=== PATIENT | male | born 1980 | race Caucasian/White ===

== ENCOUNTER 2023-08-01 16:04 | Emergency (ER) | payer OTHER ==
[~2023-08-01] VITALS: Ht 185.4 cm; Wt 122.5 kg
[~2023-08-01 16:04] MED LIST: HYDR-5071 PO; ZOLP10TA1 PO
[2023-08-01 16:09] VITALS: BP 118/63; PULSE 79; RESP 16; TEMP 97.8; O2SAT 98
[2023-08-01 17:07] LABS: BASOPHILS # (AUTO) 0.1 K/uL (0.00-0.22); BASOPHILS % (AUTO) 2.8 % (0.0-2.0); EOSINOPHILS # (AUTO) 0.1 K/uL (0-0.4); EOSINOPHILS % (AUTO) 1.4 % (0.0-4.0); HEMATOCRIT 27.5 % (36-52); HEMOGLOBIN 8.5 g/dL (12.0-18.0); LYMPHOCYTES # (AUTO) 1.9 K/uL (2.0-11.5); LYMPHOCYTES % (AUTO) 44.2 % (20.5-51.1); MEAN CORPUSCULAR HEMOGLOBIN 23 pg (27-31); MEAN CORPUSCULAR HGB CONC 31 g/dL (33-37); MEAN CORPUSCULAR VOLUME 75.1 fL (80-94); MONOCYTES # (AUTO) 0.5 K/uL (0.8-1.0); MONOCYTES % (AUTO) 10.7 % (1.7-9.3); NEUTROPHILS # (AUTO) 1.7 K/uL (1.8-7.7); NEUTROPHILS % (AUTO) 40.9 % (42.2-75.2); PLATELET COUNT (AUTO) 158 K/uL (140-450); RED BLOOD CELL COUNT(AUTO) 3.66 MIL/uL (4.20-6.10); RED CELL DISTRIBUTION WIDTH 21.9 % (11.6-13.7); WHITE BLOOD COUNT (AUTO) 4.3 K/uL (4.8-10.8)
[2023-08-01] MEDS: KETAMINE 500 MG/5 ML VIAL IM ONE (17:14)
[2023-08-01 17:16] LABS: CARBON DIOXIDE 24.9 mmol/L (21-32); CREATININE 0.7 mg/dL (0.6-1.3); POTASSIUM 3.9 mmol/L (3.5-5.1)
[2023-08-01 17:22] LABS: ALBUMIN 2.8 g/dL (3.4-5.0); BILIRUBIN,DIRECT 0.1 mg/dL (0.0-0.3); TOTAL BILIRUBIN 0.3 mg/dL (0.0-1.0); TOTAL PROTEIN, SERUM 6.1 g/dL (6.4-8.2)
[2023-08-01] MEDS: fentaNYL citrate 0.05 MG/ML VIAL IM ONE (17:38)
[2023-08-01] MEDS ORDERED: SIMETHICONE 40 MG/0.6 ML ONE (20:00)
[2023-08-01] MEDS ORDERED: DICYCLOMINE HCL LIQUID 10 MG/5 ML UDC ONE (20:00)
[2023-08-01] MEDS: DICYCLOMINE HCL LIQUID 20 MG, ALUMINUM HYD/MAG/SIMETHICONE 30 ML, LIDOCAINE VISCOUS 2% ... PO ONE (20:04)
[2023-08-01 22:17] VITALS: BP 122/72; PULSE 82; RESP 17; TEMP 98; O2SAT 98
== END 2023-08-01 22:17 | disposition home or self-care (01) ==
LOC: MED 16:04
DX: R10.84 Generalized abdominal pain (principal); R11.2 Nausea with vomiting, unspecified; R19.7 Diarrhea, unspecified; I11.9 Hypertensive heart disease without heart failure; K21.9 Gastro-esophageal reflux disease without esophagitis; Z72.89 Other problems related to lifestyle; Z79.899 Other long term (current) drug therapy
CPT/HCPCS: 36415; 74177; 80048; 80076; 82150; 83690; 85025; 96374; 99285; Q9967; J3010

== ENCOUNTER 2023-08-11 23:30 | Emergency (ER) | payer OTHER ==
[~2023-08-11] VITALS: Ht 185.4 cm; Wt 108.9 kg
[2023-08-11 23:30] VITALS: BP 110/72; PULSE 76; RESP 17; TEMP 98; O2SAT 99
[2023-08-11] MEDS ORDERED: DICYCLOMINE HCL LIQUID 10 MG/5 ML UDC ONE (23:47)
[2023-08-11] MEDS ORDERED: ALUMINUM HYD/MAG/SIMETHICONE 30 ML UDC ONE (23:47)
[2023-08-11] MEDS: DICYCLOMINE HCL LIQUID 20 MG, ALUMINUM HYD/MAG/SIMETHICONE 30 ML, LIDOCAINE VISCOUS 2% ... PO ONE (23:49)
[2023-08-11 23:50] LABS: EOSINOPHILS # (AUTO) 0.1 K/uL (0-0.4); EOSINOPHILS % (AUTO) 3.5 % (0.0-4.0); HEMATOCRIT 29.6 % (36-52); HEMOGLOBIN 9.1 g/dL (12.0-18.0); LYMPHOCYTES # (AUTO) 1.6 K/uL (2.0-11.5); LYMPHOCYTES % (AUTO) 38.3 % (20.5-51.1); MEAN CORPUSCULAR HEMOGLOBIN 24 pg (27-31); MEAN CORPUSCULAR HGB CONC 31 g/dL (33-37); MEAN CORPUSCULAR VOLUME 76.5 fL (80-94); MONOCYTES # (AUTO) 0.3 K/uL (0.8-1.0); MONOCYTES % (AUTO) 7.3 % (1.7-9.3); NEUTROPHILS % (AUTO) 49.9 % (42.2-75.2); PLATELET COUNT (AUTO) 218 K/uL (140-450); RED BLOOD CELL COUNT(AUTO) 3.87 MIL/uL (4.20-6.10); RED CELL DISTRIBUTION WIDTH 22.9 % (11.6-13.7); WHITE BLOOD COUNT (AUTO) 4.1 K/uL (4.8-10.8)
[2023-08-12 00:07] LABS: ALANINE AMINOTRANSFERASE 23 U/L (12-78); ALBUMIN 2.8 g/dL (3.4-5.0); ALKALINE PHOSPHATASE 86 U/L (50-136); ANION GAP 9.6 (8-16); ASPARTATE AMINOTRANSFERASE 19 U/L (15-37); CALCIUM 7.7 mg/dL (8.5-10.1); CARBON DIOXIDE 29.1 mmol/L (21-32); CHLORIDE 100 mmol/L (98-107); CREATININE 0.7 mg/dL (0.6-1.3); GFR ARICAN-AMERICAN 160 mL/min (>90); GFR NON ARICAN-AMERICAN 132 mL/min (>90); GLUCOSE 83 mg/dL (74-106); LIPASE 25 U/L (16-77); POTASSIUM 3.7 mmol/L (3.5-5.1); SODIUM SERUM 135 mmol/L (136-145); TOTAL BILIRUBIN 0.4 mg/dL (0.0-1.0); TOTAL PROTEIN, SERUM 6.2 g/dL (6.4-8.2); UREA NITROGEN, BLOOD 4 mg/dL (7-18)
[2023-08-12 02:28] VITALS: BP 112/72; PULSE 75; RESP 16; TEMP 98; O2SAT 99
[2023-08-12] MEDS ORDERED: PANT40EC PO (02:47)
[2023-08-12] MEDS ORDERED: ONDA-188 PO (02:47)
[2023-08-12] MEDS ORDERED: MAG355OR2 PO (02:47)
[2023-08-12] MEDS ORDERED: FERR325E14 PO (02:52)
[2023-08-12] MEDS: FAMOTIDINE 20 MG TAB PO ONE (03:25)
[2023-08-12] MEDS: ACETAMINOPHEN EXTRA STRENGTH 500 MG TAB PO ONE (03:26)
== END 2023-08-12 03:29 | disposition home or self-care (01) ==
LOC: MED 23:30
DX: K29.70 Gastritis, unspecified, without bleeding (principal); R06.02 Shortness of breath; F10.20 Alcohol dependence, uncomplicated; K21.9 Gastro-esophageal reflux disease without esophagitis; D64.9 Anemia, unspecified; I50.9 Heart failure, unspecified; Z59.00 Homelessness unspecified; Z79.1 Long term (current) use of non-steroidal anti-inflammatories (NSAID); Z79.899 Other long term (current) drug therapy; Y90.9 Presence of alcohol in blood, level not specified
CPT/HCPCS: 36415; 71045; 80053; 83690; 84484; 85025; 93005; 99285

== ENCOUNTER 2023-10-16 20:53 | Emergency (ER) | payer OTHER ==
[~2023-10-16] VITALS: Ht 180.3 cm; Wt 127.0 kg
[~2023-10-16 20:53] MED LIST changes: +FERR325E14 PO; +MAG355OR2 PO; +ONDA-188 PO; +PANT40EC PO
[2023-10-16 21:49] VITALS: BP 117/69; PULSE 69; RESP 16; TEMP 98.4; O2SAT 97
[2023-10-16 22:28] LABS: BASOPHILS # (AUTO) 0.1 K/uL (0.00-0.22); BASOPHILS % (AUTO) 1.6 % (0.0-2.0); EOSINOPHILS # (AUTO) 0.1 K/uL (0-0.4); EOSINOPHILS % (AUTO) 1.6 % (0.0-4.0); HEMATOCRIT 33.9 % (36-52); HEMOGLOBIN 10.6 g/dL (12.0-18.0); LYMPHOCYTES # (AUTO) 2.1 K/uL (2.0-11.5); LYMPHOCYTES % (AUTO) 51.7 % (20.5-51.1); MEAN CORPUSCULAR HEMOGLOBIN 27 pg (27-31); MEAN CORPUSCULAR HGB CONC 31 g/dL (33-37); MEAN CORPUSCULAR VOLUME 85.3 fL (80-94); MONOCYTES # (AUTO) 0.4 K/uL (0.8-1.0); MONOCYTES % (AUTO) 10.2 % (1.7-9.3); NEUTROPHILS # (AUTO) 1.4 K/uL (1.8-7.7); NEUTROPHILS % (AUTO) 34.9 % (42.2-75.2); PLATELET COUNT (AUTO) 145 K/uL (140-450); RED BLOOD CELL COUNT(AUTO) 3.97 MIL/uL (4.20-6.10); RED CELL DISTRIBUTION WIDTH 19.8 % (11.6-13.7); WHITE BLOOD COUNT (AUTO) 4.1 K/uL (4.8-10.8)
[2023-10-16 22:38] LABS: ANION GAP 13.9 (8-16); CALCIUM 8.2 mg/dL (8.5-10.1); CARBON DIOXIDE 28.2 mmol/L (21-32); CREATININE 0.7 mg/dL (0.6-1.3); POTASSIUM 4.1 mmol/L (3.5-5.1)
[2023-10-16] MEDS: NACL 0.9% 1,000 ML IV SCH (22:40)
[2023-10-16] MEDS: ONDANSETRON 4 MG/2 ML VIAL IVP ONE (22:41)
[2023-10-16 22:42] LABS: ALBUMIN 2.8 g/dL (3.4-5.0); BILIRUBIN,DIRECT 0.2 mg/dL (0.0-0.3); TOTAL BILIRUBIN 0.5 mg/dL (0.0-1.0); TOTAL PROTEIN, SERUM 6.5 g/dL (6.4-8.2)
[2023-10-16] MEDS: KETOROLAC 30 MG/ML VIAL IVP ONE (22:42)
[2023-10-16] MEDS: MORPHINE SULFATE 4 MG/ML SYR IVP ONE (23:33)
[2023-10-16 23:57] LABS: FLU A ANTIGEN negative (NEGATIVE); FLU B ANTIGEN NEGATIVE (NEGATIVE)
[2023-10-17 00:35] VITALS: O2SAT 98
[2023-10-17] MEDS ORDERED: ONDA8TAB87 PO (01:08)
[2023-10-17] MEDS ORDERED: IBUP-2213 PO (01:08)
[2023-10-17 03:50] VITALS: BP 104/53; PULSE 79; RESP 16; TEMP 98.4; O2SAT 98
== END 2023-10-17 03:50 | disposition home or self-care (01) ==
LOC: MED 20:53
DX: R53.1 Weakness (principal); R11.2 Nausea with vomiting, unspecified; R06.02 Shortness of breath; Z20.822 Contact with and (suspected) exposure to COVID-19; M79.18 Myalgia, other site; R50.9 Fever, unspecified; R10.13 Epigastric pain; R42 Dizziness and giddiness; K21.9 Gastro-esophageal reflux disease without esophagitis; I10 Essential (primary) hypertension; Z98.890 Other specified postprocedural states; Z79.899 Other long term (current) drug therapy
CPT/HCPCS: 36415; 71275; 80048; 80076; 83690; 85025; 85379; 87426; 87804; 96361; 96374; 96375; 99285; J1885; J2270; J2405; Q9967